=== PATIENT | female | born 1970 | race Caucasian/White ===

== ENCOUNTER 2018-05-04 19:45 | Inpatient (IN) | payer MEDICAID ==
[2018-05-04] MEDS ORDERED: Sodium Chloride 0.9% 1,000 ML IV ONE (20:41)
[2018-05-04 21:10] LABS: % BASOPHILS 0.5 % (0.0-2.0); % EOSINOPHILS 0.5 % (0.0-5.0); % LYMPHOCYTES 15.1 % (20.0-50.0); % MONOCYTES 4.3 % (2.0-10.0); % NEUTROPHILS 79.6 % (40.0-80.0); HEMATOCRIT 41.3 % (41.0-60); HEMOGLOBIN 13.5 gm/dL (12-16); LYMPHOCYTE ABSOLUTE 1.2 Th/cmm (1.5-3.0); MEAN CELL VOLUME 91.8 fl (81-100); MEAN CORPUSCULAR HEMOGLOBIN 30.1 pg (27.0-31.0); MEAN CORPUSCULAR HGB CONC 32.8 pg (28.0-36.0); MONOCYTE ABSOLUTE 0.3 Th/cmm (0.3-1.0); NEUTROPHILE ABSOLUTE 6.2 Th/cmm (1.8-8.0); PLATELET COUNT 380 Th/cmm (150-400); RED BLOOD COUNT 4.49 Mil/cmm (3.80-5.10); WHITE BLOOD COUNT 7.7 Th/cmm (4.8-10.8)
[2018-05-04 21:24] LABS: INR 0.95 (0.5-1.4); PROTHROMBIN TIME (TEST) 9.9 SECONDS (9.5-11.5)
[2018-05-04 21:28] LABS: ALB/GLOB RATIO 1.5 (1.0-1.8); ALBUMIN 4.7 gm/dL (3.7-5.3); ALKALINE PHOSPHATASE 93 U/L (34-104); AMYLASE SERUM 84 U/L (29-103); ANION GAP 11.7 (7.0-16.0); BILIRUBIN,TOTAL 0.3 mg/dL (0.3-1.0); BUN - UREA NITROGEN 24 mg/dL (7-25); CALCIUM SERUM 10.3 mg/dL (8.6-10.3); CARBON DIOXIDE 27.9 mEq/L (21.0-31.0); CHLORIDE 104 mEq/L (98-107); CHOLESTEROL 138 mg/dL (<200); CREATININE - SERUM 0.8 mg/dL (0.6-1.2); CREATININE KINASE 96 U/L (30-223); GFR AFRICAN-AMERICAN > 60.0 ml/min (>90); GFR NON AFRICAN-AMERICAN > 60.0 ml/min; GLUCOSE 158 mg/dL (70-105); HDL -HIGH DENSITY LIPOPROTEIN 64 mg/dL (23-92); LIPASE 101 U/L (11-82); POTASSIUM SERUM 3.6 mEq/L (3.5-5.1); SGOT 20 U/L (13-39); SGPT/ALT 15 U/L (7-52); SODIUM SERUM 140 mEq/L (136-145); TOTAL PROTEIN,SERUM 7.9 gm/dL (6.0-8.3); TRIGLYCERIDES 65 mg/dL (<150)
[2018-05-04 21:34] LABS: DDIMER QUANT 453 ng/mL (100-400)
[2018-05-04] MEDS ORDERED: Levofloxacin 500mg/100mL 500 MG/100 ML BAG IV ONE ×2 (21:37→21:48)
[2018-05-04 22:03] LABS: URINE SOURCE CLEAN C
[2018-05-04 22:07] LABS: URINE BILIRUBIN NEGATIVE (NEGATIVE); URINE BLOOD NEGATIVE (NEGATIVE); URINE GLUCOSE (UA) NEGATIVE (NEGATIVE); URINE KETONE NEGATIVE (NEGATIVE); URINE LEUKOCYTE ESTERASE NEGATIVE (NEGATIVE); URINE MICROSCOPIC INDICATED? YES; URINE NITRATE POSITIVE (NEGATIVE); URINE PH 6.5 (4.6 - 8.0); URINE PROTEIN NEGATIVE (NEGATIVE); URINE UROBILINOGEN 0.2 E.U./dL (0.2 - 1.0)
[2018-05-04 22:15] LABS: URINE CLARITY HAZY (CLEAR); URINE COLOR YELLOW
[2018-05-04 22:17] LABS: URINE BACTERIA MODERATE /hpf (NONE SEEN); URINE EPITHELIAL CELLS MODERATE /lpf (FEW); URINE RBC 0-2 /hpf (0-5)
[2018-05-04] MEDS ORDERED: Metoclopramide 5 mg/mL 2mL Vial IVP PRN (23:14)
[2018-05-04] MEDS ORDERED: Acetaminophen 500 MG TAB PO PRN (23:14)
[2018-05-05 01:07] VITALS: BP 146/79
[2018-05-05] MEDS: D5-0.45NS 1,000 ML IV SCH ×2 (01:36→11:10)
--- NOTE | 2018-05-05 03:10 | ED Physician Chart ---
ED Chief Complaint/HPI - Patient Information Date Seen:: 05/04/18 Time Seen:: 20:00 Chief Complaint:: Abdominal Pain History of Present Illness:: onset x 6 hours of intermittent, crampy, diffuse Abdominal Pain, N/V/D x 10; pt denies trauma, H/As, S/T, neck pain, cough, C/P, SOB, A/C, fever, chills, or urinary s/s Allergies:: Allergies Allergy/AdvReac Type Severity Reaction Status Date / Time Penicillins [PCN] Allergy Verified 05/04/18 20:39 Vitals:: Vital Signs - 8 hr 05/04/18 05/04/18 20:00 22:38 Temp 98.9 F 97.9 F HR 86 62 RR 18 17 BP 141/90 118/84 O2 Sat % 100 98 Historian:: Patient Review:: Nurse's Note Reviewed ED Review of Systems - Review of Systems General/Constitutional: No fever, No chills, No weight loss, No weakness, No diaphoresis, No edema, No loss of appetite Skin: No skin lesions, No rash, No bruising Head: No headache, No light-headedness Eyes: No loss of vision, No pain, No diplopia ENT: No earache, No nasal drainage, No sore throat, No tinnitus Neck: No neck pain, No swelling, No thyromegaly, No stiffness, No mass noted Cardio Vascular: No chest pain, No palpitations, No PND, No orthopnea, No edema Pulmonary: No SOB, No cough, No sputum, No wheezing GI: No nausea, No vomiting, No diarrhea, No pain, No melena, No hematochezia, No constipation, No hematemesis G/U: No dysuria, No frequency, No hematuria, No nacturia [employer]: No vaginal discharge, No abnormal vaginal bleed, No contraction Musculoskeletal: No bone or joint pain, No back pain, No muscle pain Endocrine: No polyuria, No polydipsia Psychiatric: No prior psych history, No depression, No anxiety, No suicidal ideation, No homicidal ideation, No auditory hallucination, No visual hallucination Hematopoietic: No bruising, No lymphadenopathy Allergic/Immuno: No urticaria, No angioedema Neurological: No syncope, No focal symptoms, No weakness, No paresthesia, No headache, No seizure, No dizziness, No confusion, No vertigo ED Past Medical History - Past Medical History Obtainable: Yes Past Medical History: PUD/GERD Family History: HTN Social History: Non Smoker, No Alcohol, No Drug Use, Surgical History: None Psychiatricy History: None Medication: Reviewed Family Medical History - Family Member Mother History Unknown: Yes ED Physical Exam - Physical Examination General/Constitutional: Awake, Well-developed, well-nourished, Alert, No distress, GCS 15, Non-toxic appearing, Ambulatory Head: Atraumatic Eyes: Lids, conjuctiva normal, PERRL, EOMI Skin: Nl inspection, No rash, No skin lesions, No ecchymosis, Well hydrated, No lymphadenopathy ENMT: External ears, nose nl, TM canals nl, Nasal exam nl, Lips, teeth, gums nl , Oropharynx nl, Tonsils nl Neck: Nontender, Full ROM w/o pain, No JVD, No nuchal rigidity, No bruit, No mass, No stridor Respiratory: Nl effort/Exclusion, Clear to Auscultation, No Wheeze/Rhonchi/Rales Cardio Vascular: RRR, No murmur, gallop, rubs, NL S1 S2, Carotid/Femoral/Distal pulses equal bilaterally GI: No tenderness/rebounding/guarding, No organomegaly, No hernia, Normal BS's, Nondistended, No mass/bruits, No McBurney tenderness, Rectum exam nl Other GI comments:: no pulsatile masses : No CVA tenderness Extremities: No tenderness or effusion, Full ROM, normal strength in all extremities, No edema, Normal digits & nails Neuro/Psych: Alert/oriented, DTR's symmetric, Normal sensory exam, Normal motor strength, Judgement/insight normal, Mood normal, Normal gait, No focal deficits Misc: Normal back, No paraspinal tenderness ED Labs/Radiology/EKG Results - Lab Results Results: Laboratory Tests 05/04/18 05/04/18 05/04/18 21:04 21:04 21:04 WBC 7.7 RBC 4.49 Hgb 13.5 Hct 41.3 MCV 91.8 MCH 30.1 MCHC Differential 32.8 RDW 13.0 Plt Count 380 MPV 7.0 Neutrophils % 79.6 Lymphocytes % 15.1 L Monocytes % 4.3 Eosinophils % 0.5 Basophils % 0.5 PT 9.9 INR 0.95 D-Dimer 453 H Sodium 140 Potassium 3.6 Chloride 104 Carbon Dioxide 27.9 Anion Gap 11.7 BUN 24 Creatinine 0.8 Est GFR ( Amer) > 60.0 Est GFR (Non-Af Amer) > 60.0 BUN/Creatinine Ratio 30.0 Glucose 158 H Calcium 10.3 Total Bilirubin 0.3 AST 20 ALT 15 Alkaline Phosphatase 93 Creatine Kinase 96 Troponin I B-Natriuretic Peptide Total Protein 7.9 Albumin 4.7 Globulin 3.2 Albumin/Globulin Ratio 1.5 Triglycerides 65 Cholesterol 138 LDL Cholesterol Direct 64 L HDL Cholesterol 64 Amylase 84 Lipase 101 H Serum , Qual Urine Source Urine Color Urine Clarity Urine pH Ur Specific [place] Urine Protein Urine Glucose (UA) Urine Ketones Urine Blood Urine Nitrate Urine Bilirubin Urine Urobilinogen Ur Leukocyte Esterase Urine RBC Urine WBC Ur Epithelial Cells Urine Bacteria 05/04/18 05/04/18 05/04/18 21:04 21:04 21:04 WBC RBC Hgb Hct MCV MCH MCHC Differential RDW Plt Count MPV Neutrophils % Lymphocytes % Monocytes % Eosinophils % Basophils % PT INR D-Dimer Sodium Potassium Chloride Carbon Dioxide Anion Gap BUN Creatinine Est GFR ( Amer) Est GFR (Non-Af Amer) BUN/Creatinine Ratio Glucose Calcium Total Bilirubin AST ALT Alkaline Phosphatase Creatine Kinase Troponin I 0.01 B-Natriuretic Peptide < 5.0 L Total Protein Albumin Globulin Albumin/Globulin Ratio Triglycerides Cholesterol LDL Cholesterol Direct HDL Cholesterol Amylase Lipase Serum , Qual NEGATIVE Urine Source Urine Color Urine Clarity Urine pH Ur Specific [place] Urine Protein Urine Glucose (UA) Urine Ketones Urine Blood Urine Nitrate Urine Bilirubin Urine Urobilinogen Ur Leukocyte Esterase Urine RBC Urine WBC Ur Epithelial Cells Urine Bacteria 05/04/18 22:00 WBC RBC Hgb Hct MCV MCH MCHC Differential RDW Plt Count MPV Neutrophils % Lymphocytes % Monocytes % Eosinophils % Basophils % PT INR D-Dimer Sodium Potassium Chloride Carbon Dioxide Anion Gap BUN Creatinine Est GFR ( Amer) Est GFR (Non-Af Amer) BUN/Creatinine Ratio Glucose Calcium Total Bilirubin AST ALT Alkaline Phosphatase Creatine Kinase Troponin I B-Natriuretic Peptide Total Protein Albumin Globulin Albumin/Globulin Ratio Triglycerides Cholesterol LDL Cholesterol Direct HDL Cholesterol Amylase Lipase Serum , Qual Urine Source CLEAN C Urine Color YELLOW Urine Clarity HAZY Urine pH 6.5 Ur Specific [place] 1.020 Urine Protein NEGATIVE Urine Glucose (UA) NEGATIVE Urine Ketones NEGATIVE Urine Blood NEGATIVE Urine Nitrate POSITIVE H Urine Bilirubin NEGATIVE Urine Urobilinogen 0.2 Ur Leukocyte Esterase NEGATIVE Urine RBC 0-2 Urine WBC 2-5 Ur Epithelial Cells MODERATE Urine Bacteria MODERATE H Comments:: Reviewed - Radiology Results Comments:: NAD - EKG Interpretations Rate & Rhythm: NSR Comments:: non-specific st-t changes ED Septic Shock - . Is Septic Shock (SBP<90, OR Lactate>4 mmol\L) present?: No - <6hrs of presentation: Vital Signs: Vital Signs - 8 hr 05/04/18 05/04/18 20:00 22:38 Temp 98.9 F 97.9 F HR 86 62 RR 18 17 BP 141/90 118/84 O2 Sat % 100 98 ED Reassessment (Disposition) - Reassessment Reassessment Condition:: Improved - Diagnosis Diagnosis:: Dx: Abdominal Pain; Intractable Nausea/Vomiting; Gastritis; AGE; UTI - Aftercare/Follow up Instructions Aftercare/Follow-Up Instructions:: Counseled pt regarding lab results/diagnosis & need follow up, Counseled pt & family regarding lab results/diagnosis & need follow up - Patient Disposition Discharge/Transfer:: Acute Care w/in this hosp Accepting Physician:: Dr. Duggan Time Called:: 2144 Time Responded:: 21:45 Admitted to:: Med/Surg Spoke to:: Dr. Duggan Admitting Medical Physician:: Dr. Duggan Condition at Disposition:: Stable, Improved
[2018-05-05 05:36] LABS: % BASOPHILS 0.7 % (0.0-2.0); % EOSINOPHILS 0.3 % (0.0-5.0); % LYMPHOCYTES 22.5 % (20.0-50.0); % MONOCYTES 8.4 % (2.0-10.0); % NEUTROPHILS 68.1 % (40.0-80.0); BASOPHILE ABSOLUTE 0.1 Th/cumm (0-0.2); HEMATOCRIT 36.4 % (41.0-60); HEMOGLOBIN 12.2 gm/dL (12-16); LYMPHOCYTE ABSOLUTE 2.1 Th/cmm (1.5-3.0); MEAN CELL VOLUME 93.2 fl (81-100); MEAN CORPUSCULAR HEMOGLOBIN 31.3 pg (27.0-31.0); MEAN CORPUSCULAR HGB CONC 33.6 pg (28.0-36.0); MEAN PLATELET VOLUME 7.2 fl; MONOCYTE ABSOLUTE 0.8 Th/cmm (0.3-1.0); NEUTROPHILE ABSOLUTE 6.2 Th/cmm (1.8-8.0); PLATELET COUNT 345 Th/cmm (150-400); RED BLOOD COUNT 3.91 Mil/cmm (3.80-5.10); RED CELL DISTRIBUTION WIDTH 12.9 % (11.5-20.0); WHITE BLOOD COUNT 9.2 Th/cmm (4.8-10.8)
[2018-05-05 06:09] LABS: ALB/GLOB RATIO 1.4 (1.0-1.8); ALBUMIN 3.5 gm/dL (3.7-5.3); ALKALINE PHOSPHATASE 70 U/L (34-104); ANION GAP 10.6 (7.0-16.0); BILIRUBIN,TOTAL 0.3 mg/dL (0.3-1.0); BUN - UREA NITROGEN 16 mg/dL (7-25); CALCIUM SERUM 8.7 mg/dL (8.6-10.3); CARBON DIOXIDE 22.9 mEq/L (21.0-31.0); CHLORIDE 105 mEq/L (98-107); CREATININE - SERUM 0.6 mg/dL (0.6-1.2); GFR AFRICAN-AMERICAN > 60.0 ml/min (>90); GFR NON AFRICAN-AMERICAN > 60.0 ml/min; GLUCOSE 127 mg/dL (70-105); MAGNESIUM 1.9 mg/dL (1.9-2.7); POTASSIUM SERUM 3.5 mEq/L (3.5-5.1); SGOT 16 U/L (13-39); SGPT/ALT 12 U/L (7-52); SODIUM SERUM 135 mEq/L (136-145); TOTAL PROTEIN,SERUM 6.1 gm/dL (6.0-8.3)
--- NOTE | 2018-05-05 08:10 | Diagnostic Imaging Report ---
CHEST X-RAY: AP view INDICATION: Fever, shortness of breath COMPARISON: None FINDINGS: There is no focal consolidation or pleural effusions The heart is normal in size. The osseous structures demonstrate no acute abnormalities. IMPRESSION: No focal airspace consolidation identified.
--- NOTE | 2018-05-05 08:17 | Diagnostic Imaging Report ---
CT abdomen and pelvis without intravenous contrast Indication: Abdominal pain nausea and vomiting Comparison: None, Technique: Axial images were obtained from the lung bases to the bilateral proximal femurs without IV contrast. Coronal reconstructions were made. total DLP: 359, CTDI 7.4 FINDINGS: Hypoventilatory and atelectatic changes of the lung bases are noted. Assessment of the solid organs is limited due to lack of IV contrast. There is evidence of prior cholecystectomy. No evidence of focal hepatic or splenic lesions. Limited assessment of pancreas demonstrate no focal lesions. No focal adrenal lesions. No hydronephrosis or nephrolithiasis. Prominent uterus is noted with multiple pelvic phleboliths. Copious stool is seen throughout the colon. Appendix is not well-visualized. There is massive distention of the stomach with air-fluid level and probable layering food contents along the dependent portion. There is also significant distention of the proximal duodenum extending to the SMA region. The transition point between dilated and nondilated bowel is at the level of the SMA. No free fluid or free air. There are bilateral pars defects at L5/S1 with associated 3 mm anterolisthesis. IMPRESSION: Significant distention of the stomach and the duodenum extending to the third portion of the duodenum with transition at the level of the superior mesenteric artery (SMA). These findings may be due to underlying SMA syndrome. Clinical correlation is needed. There are collapsed loops of bowel distal to this point. Copious stool throughout the colon. Evidence of prior cholecystectomy. The appendix was not visualized. Prominent uterus. Ultrasound would further clarify. Bilateral pars defects at L5/S1 with associated grade 1 anterolisthesis.
[2018-05-05] MEDS: Ciprofloxacin 200mg Premix PB 200 MG/100 ML BAG IV SCH ×2 (08:23→20:49)
--- NOTE | 2018-05-05 10:03 | Diagnostic Imaging Report ---
Left wrist (3 views) HISTORY: Pain No acute bony abnormalities. No fractures. IMPRESSION: 1. No acute abnormalities In the presence of recent trauma and persistent symptoms, a repeat radiograph in 5-7 days may be helpful for detection of a subtle or occult fracture.
[2018-05-06] MEDS: D5-0.45NS 1,000 ML IV SCH (00:34)
[2018-05-06 05:37] LABS: % BASOPHILS 0.2 % (0.0-2.0); % EOSINOPHILS 1.3 % (0.0-5.0); % LYMPHOCYTES 39.8 % (20.0-50.0); % MONOCYTES 8.3 % (2.0-10.0); % NEUTROPHILS 50.4 % (40.0-80.0); EOSINOPHILE ABSOLUTE 0.1 Th/cmm (0.1-0.4); HEMATOCRIT 36.3 % (41.0-60); HEMOGLOBIN 12.2 gm/dL (12-16); LYMPHOCYTE ABSOLUTE 2.2 Th/cmm (1.5-3.0); MEAN CELL VOLUME 92.5 fl (81-100); MEAN CORPUSCULAR HEMOGLOBIN 31.1 pg (27.0-31.0); MEAN CORPUSCULAR HGB CONC 33.6 pg (28.0-36.0); MEAN PLATELET VOLUME 7.4 fl; MONOCYTE ABSOLUTE 0.5 Th/cmm (0.3-1.0); NEUTROPHILE ABSOLUTE 2.7 Th/cmm (1.8-8.0); PLATELET COUNT 280 Th/cmm (150-400); RED BLOOD COUNT 3.93 Mil/cmm (3.80-5.10); RED CELL DISTRIBUTION WIDTH 12.8 % (11.5-20.0); WHITE BLOOD COUNT 5.5 Th/cmm (4.8-10.8)
[2018-05-06 05:51] LABS: ANION GAP 9.6 (7.0-16.0); BUN - UREA NITROGEN 10 mg/dL (7-25); CALCIUM SERUM 8.5 mg/dL (8.6-10.3); CARBON DIOXIDE 22.8 mEq/L (21.0-31.0); CHLORIDE 108 mEq/L (98-107); CREATININE - SERUM 0.6 mg/dL (0.6-1.2); GFR AFRICAN-AMERICAN > 60.0 ml/min (>90); GFR NON AFRICAN-AMERICAN > 60.0 ml/min; GLUCOSE 104 mg/dL (70-105); MAGNESIUM 1.9 mg/dL (1.9-2.7); POTASSIUM SERUM 3.4 mEq/L (3.5-5.1); SODIUM SERUM 137 mEq/L (136-145)
[2018-05-06] MEDS: Ciprofloxacin 200mg Premix PB 200 MG/100 ML BAG IV SCH (08:23)
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
--- NOTE | 2018-05-14 22:07 | Discharge Summary ---
DATE OF DISCHARGE: 05/06/2018 LEFT AGAINST MEDICAL ADVICE: 05/06/2018. ADMITTING DIAGNOSES: 1. Abdominal pain with intractable nausea and vomiting. Differential including gastroesophageal reflux disease exacerbation versus acute enteritis versus 2ry to urinary tract infection. 2. Urinary tract infection. 3. Constipation. 4. Recent history of fall with left arm pain and swelling. SECONDARY DIAGNOSES: History of homelessness, history of multi-substance abuse, history of acid reflux disease, and essential hypertension. DISCHARGE DIAGNOSES: 1. Abdominal pain with intractable nausea, vomiting - resolved. 2. Complicated urinary tract infection - Escherichia coli. CONSULTANTS: No consultants were used during this admission. MAJOR PROCEDURES: There was an abdominal and pelvis CT done on the showing significant distention of the stomach and duodenum extending to the third portion of the duodenum with transition at the level of the superior mesenteric artery. These findings may be due to underlying SMA syndrome. They are collapsed loops of bowel distal to this point. There is copious stool throughout the colon. Evidence of prior cholecystectomy. The appendix was not visualized. Prominent uterus. She also underwent a left wrist x-ray on the showing no acute abnormalities. BRIEF HOSPITAL COURSE: A 47-year-old female with history of acid reflux disease, essential hypertension, who presented to the ED with a 1-day history of persistent nausea and vomiting. The patient apparently had some chilli hot dogs the day prior and soon after started complaining of abdominal pain and multiple episodes of nausea and vomiting. The nausea and vomiting could not be controlled at the ER; therefore, she was admitted to the medical floor for further management and care. She underwent CT of the abdomen at the ED. On admission, the patient was placed on IV fluids, IV antibiotics, and antacids. On admission, pertinent findings on labs include a D-dimer of 453, but otherwise her chemistries and her CBC was essentially within normal limits. She did have a UA consistent with a UTI, which eventually came back as E. coli with multidrug resistance. By hospital day #1, the patient reported clinical improvement of her symptoms with no longer having nausea, vomiting or significant abdominal pain. She was started on full liquid diet and was able to tolerate a bland soft diet by the end of hospital day #2. She also was placed on antihypertensives (lisinopril) given that her blood pressure was noted to be on the high side. MEDICATIONS ON DISCHARGE: Cipro 250 mg p.o. b.i.d. x 7 days, lisinopril 5 mg q. day, omeprazole 20 mg q. day. CONDITION ON DISCHARGE: Stable. [facility]# [id number] MTDD
== END 2018-05-06 13:36 | disposition left against medical advice (07) | DRG 463 ==
LOC: ER 19:45 → MSI 23:20
PROVIDERS: ADMIT Internal Medicine; ATTEND Internal Medicine
DX: N39.0 Urinary tract infection, site not specified (principal); F17.210 Nicotine dependence, cigarettes, uncomplicated; K52.9 Noninfective gastroenteritis and colitis, unspecified; K29.70 Gastritis, unspecified, without bleeding; F19.11 Other psychoactive substance abuse, in remission; K21.9 Gastro-esophageal reflux disease without esophagitis; K59.00 Constipation, unspecified; I10 Essential (primary) hypertension; Z90.49 Acquired absence of other specified parts of digestive tract; Z59.0 Homelessness; Z88.0 Allergy status to penicillin; Z91.81 History of falling
CPT/HCPCS: 36415-UA; 71045-TC; 73110-TC-LT; 80048-TC; 80053-TC; 80061-TC; 81001-TC; 82150-TC; 82550-TC; 83690-TC; 83735-TC; 83880-TC; 84484-TC; 84703-TC; 85025-TC; 85379-TC; 85610-TC; 87086-90; 93005; 94760; 96375; 96376; J0744; J1956; J2405; Z7610